=== PATIENT | female | born 1980 | race Caucasian/White ===

== ENCOUNTER 2017-04-29 15:21 | Emergency (ER) | payer MEDICAID ==
[2017-04-29] MEDS ORDERED: HYDROmorphone 1 MG/ML Syringe ONE (15:45)
--- NOTE | 2017-04-29 15:51 | EDM.PDOC ---
ED HPI GENERAL MEDICAL PROBLEM - General Chief Complaint: General Stated Complaint: STOMACH PAIN THAT STARTED LAST NIGHT Time Seen by Provider: 04/29/17 15:35 Source of Information: Reports: Patient History Limitations: Reports: No Limitations - History of Present Illness INITIAL COMMENTS - FREE TEXT/NARRATIVE: The patient presents from the [facility] in [place] with complaint of severe epigastric pain that began this morning and has increased significantly throughout the day. She has a history of cholecystectomy and hysterectomy and bilateral oophorectomy. She describes the pain what as sharp and stabbing and rates it at 8/10 and describes that at times it gets more severe and at times it dissipates. She ate toast for lunch and denies that it increased the pain. She denies nausea, vomiting, diarrhea, hematochezia, and melena. She denies fever, chills, myalgias, and arthralgias. She denies other symptoms or complaints. Upper Mid-Sternal Abdominal Pain Score (Numeric/FACES): 10 - Related Data Allergies Allergy/AdvReac Type Severity Reaction Status Date / Time No Known Allergies Allergy Verified 04/29/17 15:31 Home Meds: Home Meds ALPRAZolam [Xanax] 1 mg PO TID 04/29/17 [History] ARIPiprazole [Abilify] 15 mg PO DAILY 04/29/17 [History] Citalopram [Celexa] 30 mg PO DAILY 04/29/17 [History] Estradiol [Climara] 0.1 mg TD WEEKLY 04/29/17 [History] Omeprazole [Omeprazole] 20 mg PO DAILY 04/29/17 [History] QUEtiapine [SEROquel] 50 mg PO BEDTIME 04/29/17 [History] Past Medical History - Past Surgical History GI Surgical History: Reports: Appendectomy (About 10 years ago.), Cholecystectomy (Laparascopic 2003.) Female Surgical History: Reports: Hysterectomy (Transabdominal about 10 years ago.), Salpingo-Oophorectomy (Bilateral) Social & Family History - Tobacco Use Years of Tobacco use: 5 - Alcohol Use Days Per Week of Alcohol Use: 0 - Recreational Drug Use Recreational Drug Use: No ED ROS GENERAL - Review of Systems Review Of Systems: ROS reveals no pertinent complaints other than HPI. ED EXAM, GENERAL - Physical Exam Exam: See Below Exam Limited By: No Limitations General Appearance: Alert, WD/WN, No Apparent Distress Eye Exam: Bilateral Eye: EOMI, Normal Inspection, PERRL Ears: Normal External Exam, Normal Canal, Hearing Grossly Normal, Normal TMs Ear Exam: Bilateral Ear: Auricle Normal, Canal Normal, TM normal Nose: Normal Inspection, Normal Mucosa, No Blood Throat/Mouth: Normal Inspection, Normal Lips, Normal Teeth, Normal Gums, Normal Oropharynx, Normal Voice Head: Atraumatic, Normocephalic Neck: Normal Inspection, Supple, Non-Tender, Full Range of Motion Respiratory/Chest: No Respiratory Distress, Lungs Clear, Normal Breath Sounds, No Accessory Muscle Use, Chest Non-Tender Cardiovascular: Normal Peripheral Pulses, Regular Rate, Rhythm, No Edema, No Gallop, No Murmur, No Rub Peripheral Pulses: 2+: Radial (L), Radial (R), Dorsalis Pedis (L), Dorsalis Pedis (R) GI/Abdominal: Soft, No Distention, Guarding (Voluntary), Rigid, Rebound ( Epigastric), Tender (Severe epigastric), Abnormal Bowel Sounds (Significantly hypoactive) Back Exam: Normal Inspection, Full Range of Motion. No: CVA Tenderness (L), CVA Tenderness (R), Paraspinal Tenderness, Vertebral Tenderness Extremities: Normal Inspection, Normal Range of Motion, Non-Tender, No Pedal Edema, Normal Capillary Refill Neurological: Alert, Oriented, CN II-XII Intact, Normal Cognition, Normal Gait, Normal Reflexes, No Motor/Sensory Deficits Skin Exam: Warm, Dry, Intact, Normal Color, No Rash Course - Vital Signs Last Recorded V/S: Last Vital Signs Temp 37.2 C 04/29/17 15:25 Pulse 86 04/29/17 20:30 Resp 14 04/29/17 20:30 BP 115/89 04/29/17 20:30 Pulse Ox 96 04/29/17 19:45 - Orders/Labs/Meds Orders: Active Orders 24 hr Category Date Time Status EKG Documentation Completion [RC] ASDIRECTED Care 04/29/17 15:42 Active Abdomen Pelvis w Cont [CT] Stat Exams 04/29/17 16:18 Taken Chest 1V Frontal [CR] Stat Exams 04/29/17 15:51 Taken Sodium Chloride 0.9% [Normal Saline] 1,000 ml Med 04/29/17 16:30 Active IV ASDIRECTED Medication Orders Sodium Chloride (Normal Saline) 1,000 mls @ 100 mls/hr IV ASDIRECTED LESLIE Last Admin: 04/29/17 17:40 Dose: 100 mls/hr Labs: Laboratory Tests 04/29/17 04/29/17 04/29/17 Range/Units 14:40 15:40 15:40 WBC 12.1 H (4.0-10.2) K/uL RBC 5.14 H (3.77-5.09) M/uL Hgb 16.4 H (11.7-15.5) g/dL Hct 47.6 H (34.0-46.0) % MCV 92.6 (84.0-98.0) fL MCH 31.9 (28.2-33.3) pg MCHC 34.5 (31.7-36.0) g/dL RDW 12.5 (11.2-14.1) % Plt Count 388 H (150-350) K/uL Neut % (Auto) 57.8 (45.0-80.0) % Lymph % (Auto) 34.3 (10.0-50.0) % [place] % (Auto) 6.4 (2.0-14.0) % Eos % (Auto) 1.2 (0.0-5.0) % Baso % (Auto) 0.3 (0.0-2.0) % Neut # (Auto) 6.96 (1.40-7.00) K/uL Lymph # (Auto) 4.14 H (0.50-3.50) K/uL [place] # (Auto) 0.77 (0.00-1.00) K/uL Eos # (Auto) 0.15 (0.00-0.50) K/uL Baso # (Auto) 0.04 (0.00-0.20) K/uL PT (9.8-11.7) SEC INR Sodium 139 (136-145) mmol/L Potassium 4.0 (3.5-5.1) mmol/L Chloride 101 (98-107) mmol/L Carbon Dioxide 29.6 (21.0-32.0) mmol/L BUN 12 (7-18) mg/dL Creatinine 0.72 (0.51-1.17) mg/dL Est Cr Clr Drug Dosing 107.92 mL/min Estimated GFR (MDRD) > 60 mL/min Glucose 119 H (74-106) mg/dL Calcium 9.5 (8.5-10.1) mg/dL Total Bilirubin 0.3 (0.2-1.0) mg/dL AST 46 H (15-37) U/L ALT 74 (12-78) U/L Alkaline Phosphatase 125 H (46-116) IU/L Creatine Kinase 74 (26-308) U/L Creatine Kinase Index 1.4 (0.0-2.5) % CK-MB (CK-2) 1.00 (0.00-3.60) ng/mL Troponin I 0.000 (0.000-0.056) ng/mL C-Reactive Protein 1.3 H (<=0.9) mg/dL Total Protein 7.7 (6.4-8.2) g/dL Albumin 4.2 (3.4-5.0) g/dL Amylase 53 (25-115) U/L Lipase 97 (73-393) U/L HCG, Qual Negative (NEGATIVE) Specimen Type Urine Color Urine Appearance Urine pH (5.0-9.0) Ur Specific [place] (1.005-1.030) Urine Protein (NEGATIVE) mg/dL Urine Glucose (UA) (NEGATIVE) mg/dL Urine Ketones (NEGATIVE) mg/dL Urine Occult Blood (NEGATIVE) Urine Nitrite (NEGATIVE) Urine Bilirubin (NEGATIVE) Urine Urobilinogen (0.2-1.0) E.U./dL Ur Leukocyte Esterase (NEGATIVE) 04/29/17 04/29/17 04/29/17 Range/Units 15:40 19:45 19:45 WBC (4.0-10.2) K/uL RBC (3.77-5.09) M/uL Hgb (11.7-15.5) g/dL Hct (34.0-46.0) % MCV (84.0-98.0) fL MCH (28.2-33.3) pg MCHC (31.7-36.0) g/dL RDW (11.2-14.1) % Plt Count (150-350) K/uL Neut % (Auto) (45.0-80.0) % Lymph % (Auto) (10.0-50.0) % [place] % (Auto) (2.0-14.0) % Eos % (Auto) (0.0-5.0) % Baso % (Auto) (0.0-2.0) % Neut # (Auto) (1.40-7.00) K/uL Lymph # (Auto) (0.50-3.50) K/uL [place] # (Auto) (0.00-1.00) K/uL Eos # (Auto) (0.00-0.50) K/uL Baso # (Auto) (0.00-0.20) K/uL PT 10.0 (9.8-11.7) SEC INR 0.9 Sodium (136-145) mmol/L Potassium (3.5-5.1) mmol/L Chloride (98-107) mmol/L Carbon Dioxide (21.0-32.0) mmol/L BUN (7-18) mg/dL Creatinine (0.51-1.17) mg/dL Est Cr Clr Drug Dosing mL/min Estimated GFR (MDRD) mL/min Glucose (74-106) mg/dL Calcium (8.5-10.1) mg/dL Total Bilirubin (0.2-1.0) mg/dL AST (15-37) U/L ALT (12-78) U/L Alkaline Phosphatase (46-116) IU/L Creatine Kinase (26-308) U/L Creatine Kinase Index Not Reportable (0.0-2.5) % CK-MB (CK-2) 0.80 (0.00-3.60) ng/mL Troponin I 0.000 (0.000-0.056) ng/mL C-Reactive Protein (<=0.9) mg/dL Total Protein (6.4-8.2) g/dL Albumin (3.4-5.0) g/dL Amylase (25-115) U/L Lipase (73-393) U/L HCG, Qual (NEGATIVE) Specimen Type Urincc Urine Color Yellow Urine Appearance Cloudy Urine pH 5.5 (5.0-9.0) Ur Specific [place] 1.010 (1.005-1.030) Urine Protein Negative (NEGATIVE) mg/dL Urine Glucose (UA) Negative (NEGATIVE) mg/dL Urine Ketones Negative (NEGATIVE) mg/dL Urine Occult Blood Negative (NEGATIVE) Urine Nitrite Negative (NEGATIVE) Urine Bilirubin Negative (NEGATIVE) Urine Urobilinogen 0.2 (0.2-1.0) E.U./dL Ur Leukocyte Esterase Negative (NEGATIVE) Meds: Medications Generic Name Dose Route Start Last Admin Trade Name Frecinthya PRN Reason Stop Dose Admin Sodium Chloride 1,000 mls @ 100 mls/hr 04/29/17 16:30 04/29/17 17:40 Normal Saline IV 100 mls/hr ASDIRECTED LESLIE Administration Discontinued Medications Generic Name Dose Route Start Last Admin Trade Name Freq PRN Reason Stop Dose Admin Al Hydroxide/Mg Hydroxide 30 ml 04/29/17 18:10 04/29/17 18:14 Gi Cocktail PO 04/29/17 18:11 30 ml ONETIME ONE Administration Al Hydroxide/Mg Hydroxide Confirm 04/29/17 18:12 04/29/17 19:01 Gi Cocktail Administered 04/29/17 18:13 Not Given Dose 30 ml .ROUTE .STK-MED ONE Al Hydroxide/Mg Hydroxide 30 ml 04/29/17 19:36 04/29/17 19:39 Gi Cocktail PO 04/29/17 19:37 30 ml ONETIME ONE Administration Hydromorphone HCl Confirm 04/29/17 15:45 04/29/17 16:15 Dilaudid Administered 04/29/17 15:46 Not Given Dose 1 mg .ROUTE .STK-MED ONE Hydromorphone HCl 1 mg 04/29/17 15:53 04/29/17 15:47 Dilaudid IVPUSH 04/29/17 15:54 1 mg ONETIME ONE Administration Hydromorphone HCl 1 mg 04/29/17 16:34 04/29/17 16:38 Dilaudid IVPUSH 04/29/17 16:35 1 mg ONETIME ONE Administration Hydromorphone HCl 1 mg 04/29/17 17:28 04/29/17 17:32 Dilaudid IVPUSH 04/29/17 17:29 1 mg ONETIME ONE Administration Sodium Chloride 1,000 mls @ 1,000 mls/hr 04/29/17 16:20 04/29/17 16:26 Normal Saline IV 04/29/17 17:19 1,000 mls/hr .BOLUS ONE Administration Iopamidol 100 ml 04/29/17 16:29 04/29/17 16:48 Isovue-300 (61%) IVPUSH 04/29/17 16:30 100 ml ONETIME ONE Administration - Radiology Interpretation Free Text/Narrative:: Chest xray normal. CT of the abdomen and pelvis shows no acute abnormalities. - Re-Assessments/Exams Free Text/Narrative Re-Assessment/Exam: 04/29/17 15:56 Pain significantly improved after 1 mg of Dilaudid, patient rates at 5/10 currently. 04/29/17 18:45 Pain improved but still present after GI cocktail. Will continue to monitor and treat appropriately and check serial cardiac enzymes in 4 hours to rule out NC. 04/29/17 20:30 Patient reports resolution of pain following second GI cocktail. 04/29/17 21:00 Pain still at 0/10. Departure - Departure Time of Disposition: 21:00 Disposition: Home, Self-Care 01 Clinical Impression: Epigastric abdominal pain - Discharge Information Referrals: Tamara Ray PA-C [Primary Care Provider] - Forms: ED Department Discharge - My Orders Last 24 Hours: My Active Orders 04/29/17 15:42 EKG Documentation Completion [RC] ASDIRECTED 04/29/17 15:51 Chest 1V Frontal [CR] Stat 04/29/17 16:18 Abdomen Pelvis w Cont [CT] Stat 04/29/17 16:30 Sodium Chloride 0.9% [Normal Saline] 1,000 ml IV ASDIRECTED - Assessment/Plan Last 24 Hours: My Active Orders 04/29/17 15:42 EKG Documentation Completion [RC] ASDIRECTED 04/29/17 15:51 Chest 1V Frontal [CR] Stat 04/29/17 16:18 Abdomen Pelvis w Cont [CT] Stat 04/29/17 16:30 Sodium Chloride 0.9% [Normal Saline] 1,000 ml IV ASDIRECTED Assessment:: Epigastric abdominal pain improved following first dose of GI cocktail and resolved after second dose of GI cocktail. Differential includes most likely Gastric Ulcer or Gastritis, and less likely Indigestion. Plan: 1. Given Dilaudid 1 mg IV x 3 with some improvement in pain. 2. NS bolus of 1 liter and then 100 mL/hour during ER stay. 3. Ruled out acute NC and normal chest xray and CT of the abdomen and pelvis. 4. GI cocktail x 2 in ER with improvement of pain following first dose and resolution of pain following the second dose. 5. Explained to patient most likely differential includes Gastric Ulcer or Gastritis and less likely Indigestion. 6. Instructed to increase dose of Prilosec from 20 mg PO QHS to 20 mg PO in AM and 20 mg PO QHS. 7. Prescription for Carafate 1 gram PO QID, take 1 hour before meals, 10 day supply, 0 refills. 8. Follow up with PCP in 5-7 days or sooner if symptoms worsen. Recommend referral for Upper GI Endoscopy if symptoms persist. 9. Return to ER with increased/refractory/severe pain, refractory vomiting, blood in vomit or coffee ground material in vomit, blood in stool, black stool, or other emergent concerns.
[2017-04-29] MEDS ORDERED: HYDROmorphone 1 MG/ML Syringe IVPUSH ONE ×3 (15:53→17:28)
[2017-04-29 16:17] LABS: CHLORIDE,CL 101 mmol/L (98-107); SODIUM,NA 139 mmol/L (136-145)
[2017-04-29] MEDS ORDERED: Sodium Chloride 0.9% 1,000 ML IV ONE (16:20)
[2017-04-29] MEDS ORDERED: Iopamidol 612 MG/ML 100 ML Bottle IVPUSH ONE (16:29)
[2017-04-29] MEDS ORDERED: Sodium Chloride 0.9% 1,000 ML IV SCH (16:30)
[2017-04-29] MEDS ORDERED: GI Cocktail Oral Solution 30 ML PO ONE ×2 (18:10→19:36)
[2017-04-29] MEDS: GI Cocktail Oral Solution 30 ML ONE ×2 (19:01)
[2017-04-29 22:04] VITALS: BP 99/80
== END 2017-04-29 21:35 | disposition home or self-care (01) ==
LOC: LL.ED 15:21
DX: R10.13 Epigastric pain (principal); Z90.49 Acquired absence of other specified parts of digestive tract; Z90.710 Acquired absence of both cervix and uterus; Z79.899 Other long term (current) drug therapy
CPT/HCPCS: 36415; 71010; 74177; 80053; 81003; 82150; 82550; 82553; 83690; 84484; 84703; 85025; 85610; 86140; 93005; 96361; 96374; 96376; 99285; A9270; J1170; J7030; Q9967

== ENCOUNTER 2017-12-26 00:39 | Observation (INO) | payer MEDICAID ==
[2017-12-26] MEDS ORDERED: HYDROmorphone 1 MG/ML Syringe IVPUSH PRN (01:12)
--- NOTE | 2017-12-26 01:24 | EDM.PDOC ---
ED HPI GENERAL MEDICAL PROBLEM - General Chief Complaint: General Stated Complaint: Abdominal pain Time Seen by Provider: 12/26/17 00:50 Source of Information: Reports: Patient History Limitations: Reports: No Limitations - History of Present Illness INITIAL COMMENTS - FREE TEXT/NARRATIVE: Patient is a 37-year-old female who was brought in by the [employer] ambulance from work with severe abdominal pain more in the hypogastric area and multiple syncopal episodes while in the ER she had a syncopal episode that was witnessed by the nurses easily arousable vitals stable Onset: Gradual Duration: Minutes:, Intermittent Location: Reports: Abdomen Quality: Reports: Ache, Dull, Stabbing (Abdominal pain) Severity: Moderate Improves with: Reports: None Worsens with: Reports: None, Movement Context: Reports: Activity (Working) Associated Symptoms: Reports: Diaphoresis, Fever/Chills, Weakness. Denies: Cough, cough w sputum, Nausea/Vomiting Abdomen Pain Score (Numeric/FACES): 7 - Related Data Allergies Allergy/AdvReac Type Severity Reaction Status Date / Time No Known Allergies Allergy Verified 12/26/17 00:54 Home Meds: Home Meds ALPRAZolam [Xanax] 1 mg PO TID 04/29/17 [History] ARIPiprazole [Abilify] 15 mg PO DAILY 04/29/17 [History] Citalopram [Celexa] 30 mg PO DAILY 04/29/17 [History] Estradiol [Climara] 0.1 mg TD WEEKLY 04/29/17 [History] Omeprazole [Omeprazole] 20 mg PO DAILY 04/29/17 [History] QUEtiapine [SEROquel] 50 mg PO BEDTIME 04/29/17 [History] Sucralfate [Carafate] 1 gm PO QID #40 tablet 04/29/17 [Rx] Past Medical History HEENT History: Reports: Impaired Vision, Other (See Below) Other HEENT History: wears glasses Neurological History: Reports: Migraines, Seizure, Other (See Below) Other Neuro History: seizure after starting tramadol Psychiatric History: Reports: Anxiety, Depression, Panic Attack - Past Surgical History GI Surgical History: Reports: Appendectomy (About 10 years ago.), Cholecystectomy (Laparascopic 2004.) Female Surgical History: Reports: Hysterectomy (Transabdominal about 10 years ago.), Salpingo-Oophorectomy (Bilateral) Social & Family History - Tobacco Use Smoking Status *Q: Current Every Day Smoker Years of Tobacco use: 5 Packs/Tins Daily: 0.5 Used Tobacco, but Quit: No Second Hand Smoke Exposure: No - Caffeine Use Caffeine Use: Reports: None - Alcohol Use Days Per Week of Alcohol Use: 0 - Recreational Drug Use Recreational Drug Use: No Drug Use in Last 12 Months: No Recreational Drug Type: Reports: Other (see below) Other Recreational Drug Type: state for one year did every type of drug but has since quit ED ROS GENERAL - Review of Systems Review Of Systems: See Below Constitutional: Reports: Fever, Chills, Diaphoresis HEENT: Reports: No Symptoms, Rhinitis Respiratory: Reports: No Symptoms Cardiovascular: Reports: No Symptoms Endocrine: Reports: No Symptoms GI/Abdominal: Reports: Abdominal Pain : Reports: No Symptoms Musculoskeletal: Reports: Neck Pain, Shoulder Pain, Arm Pain, Back Pain, Hand Pain, Leg Pain, Foot Pain, Joint Pain, Joint Swelling, Muscle Pain, Muscle Stiffness, Other (Secondary to job) Skin: Reports: No Symptoms Neurological: Reports: No Symptoms Psychiatric: Reports: Anxiety Hematologic/Lymphatic: Reports: No Symptoms Immunologic: Reports: No Symptoms ED EXAM, GENERAL - Physical Exam Exam: See Below Exam Limited By: No Limitations General Appearance: Alert, WD/WN, Anxious, Moderate Distress Ears: Normal External Exam, Normal Canal, Hearing Grossly Normal, Normal TMs Ear Exam: Bilateral Ear: Auricle Normal, Canal Normal, TM normal Nose: Normal Inspection, Normal Mucosa, No Blood Throat/Mouth: Normal Inspection, Normal Lips, Normal Teeth, Normal Gums, Normal Oropharynx, Normal Voice, No Airway Compromise Head: Atraumatic, Normocephalic Neck: Normal Inspection, Supple, Non-Tender, Full Range of Motion Respiratory/Chest: No Respiratory Distress, Lungs Clear, Normal Breath Sounds, No Accessory Muscle Use, Chest Non-Tender Cardiovascular: Normal Peripheral Pulses, Regular Rate, Rhythm, No Edema, No Gallop, No JVD, No Murmur, No Rub GI/Abdominal: Normal Bowel Sounds, Soft, No Organomegaly, No Distention, No Abnormal Bruit, No Mass, Tender (Tender to palpation) (Female) Exam: Deferred Rectal (Female) Exam: Deferred Back Exam: Normal Inspection, Full Range of Motion, NT Extremities: Normal Inspection, Normal Range of Motion, Non-Tender, Normal Capillary Refill, No Pedal Edema Neurological: Alert, Oriented, CN II-XII Intact, Normal Cognition, Normal Gait, Normal Reflexes, No Motor/Sensory Deficits Psychiatric: Normal Affect, Normal Mood, Anxious, Tearful (Secondary to pain) Skin Exam: Warm, Dry, Intact, Normal Color, No Rash Lymphatic: No Adenopathy Course - Vital Signs Last Recorded V/S: Last Vital Signs Temp 97.9 F 12/26/17 00:40 Pulse 94 12/26/17 00:40 Resp 20 12/26/17 00:40 BP 130/99 H 12/26/17 00:40 Pulse Ox 98 12/26/17 00:40 - Orders/Labs/Meds Orders: Active Orders 24 hr Category Date Time Status EKG Documentation Completion [RC] ASDIRECTED Care 12/26/17 01:02 Active AMYLASE [CHEM] Stat Lab 12/26/17 01:02 Ordered CBC WITH AUTO DIFF [HEME] Stat Lab 12/26/17 01:02 Ordered COMPREHENSIVE METABOLIC PN,CMP [CHEM] Stat Lab 12/26/17 01:02 Ordered INFLUENZA A+B AG SCREEN [RM] Stat Lab 12/26/17 01:06 Uncollected LIPASE [CHEM] Stat Lab 12/26/17 01:02 Ordered EKG 12 Lead [EK] Routine Ther 12/26/17 01:01 Ordered Departure - Departure Time of Disposition: 02:00 Disposition: Refer to Observation Condition: Undetermined Clinical Impression: Abdominal pain, Viral gastroenteritis - Discharge Information Referrals: Tamara Ray PA-C [Primary Care Provider] - - Problem List & Annotations (1) Abdominal pain SNOMED Code(s): 96157257 Code(s): R10.9 - UNSPECIFIED ABDOMINAL PAIN Status: Acute (2) Viral gastroenteritis SNOMED Code(s): 996731060 Code(s): A08.4 - VIRAL INTESTINAL INFECTION, UNSPECIFIED Status: Acute Annotation/Comment:: Patient will be hydrated pain will be controlled with Dilaudid IV Zofran will be given IV patient will be admitted for observation - Problem List Review Problem List Initiated/Reviewed/Updated: Yes - My Orders Last 24 Hours: My Active Orders 12/26/17 01:01 EKG 12 Lead [EK] Routine 12/26/17 01:02 EKG Documentation Completion [RC] ASDIRECTED AMYLASE [CHEM] Stat CBC WITH AUTO DIFF [HEME] Stat COMPREHENSIVE METABOLIC PN,CMP [CHEM] Stat LIPASE [CHEM] Stat 12/26/17 01:06 INFLUENZA A+B AG SCREEN [RM] Stat - Assessment/Plan Admission H&P: Please use this note as an admission H&P Last 24 Hours: My Active Orders 12/26/17 01:01 EKG 12 Lead [EK] Routine 12/26/17 01:02 EKG Documentation Completion [RC] ASDIRECTED AMYLASE [CHEM] Stat CBC WITH AUTO DIFF [HEME] Stat COMPREHENSIVE METABOLIC PN,CMP [CHEM] Stat LIPASE [CHEM] Stat 12/26/17 01:06 INFLUENZA A+B AG SCREEN [RM] Stat Plan: Patient will be admitted for observation overnight
[2017-12-26] MEDS ORDERED: Ondansetron 4 MG/2 ML SDV IVPUSH ONE (01:32)
[2017-12-26] MEDS: Sodium Chloride 0.9% 10 ML Syringe FLUSH PRN ×3 (01:49→19:17)
[2017-12-26] MEDS ORDERED: ESTRADIOL 0.1 MG TD SCH (02:15)
[2017-12-26] MEDS ORDERED: FLU Vacc QS 2017-18 (36mos UP)/PF 60 MCG/0.5 ML Syringe IM ONE (02:15)
[2017-12-26] MEDS: ALPRAZolam 1 MG Tab PO SCH ×4 (03:14→19:18)
[2017-12-26] MEDS: Sodium Chloride 0.9% 1,000 ML IV SCH ×3 (03:14→17:08)
[2017-12-26] MEDS: QUEtiapine 25 MG Tab PO SCH ×2 (03:14→19:38)
[2017-12-26] MEDS: Acetaminophen 325 MG Tab PO PRN ×2 (03:14→13:27)
[2017-12-26 07:41] LABS: CHLORIDE,CL 106 mmol/L (98-107); SODIUM,NA 139 mmol/L (136-145)
[2017-12-26] MEDS ORDERED: ALPRAZolam 1 MG Tab PO SCH (08:00)
[2017-12-26] MEDS: Nicotine 21 MG/24 Hr Patch TRDERM SCH (08:12)
[2017-12-26] MEDS: ARIPiprazole 10 MG Tab PO SCH (08:14)
[2017-12-26] MEDS: Citalopram 20 MG Tab PO SCH (08:15)
[2017-12-26] MEDS: Enoxaparin 40 MG/0.4 ML Syringe SUBCUT SCH (08:16)
[2017-12-26] MEDS: Omeprazole 20 MG Cap.CR PO SCH (08:25)
[2017-12-26] MEDS ORDERED: Ketorolac 30 MG/ML SDV IVPUSH ONE (13:59)
[2017-12-26] MEDS ORDERED: HYDROmorphone 1 MG/ML Syringe IVPUSH ONE (14:02)
[2017-12-26] MEDS ORDERED: Morphine 4 MG/ML Syringe IVPUSH ONE (14:15)
[2017-12-26] MEDS ORDERED: Iopamidol 612 MG/ML 100 ML Bottle IVPUSH ONE ×2 (17:00→17:01)
[2017-12-26] MEDS ORDERED: Ondansetron 4 MG/2 ML SDV IVPUSH PRN (18:37)
--- NOTE | 2017-12-26 19:02 | PCM.SN ---
- Free Text/Narrative Note: Patient observed to be very sleepy throughout most of the day. No observed episodes of passing out/acting faint. Patient reports that she fainted/passed out approximately a half dozen times last evening while working at [employer]. Continued to complain of generalized abdominal pain, sometimes radiating to back. UA obtained and unremarkable. Plain xray of abdomen obtained and no air/ fluid levels noted. Stool noted throughout, but patient did not complain of feeling constipated. Pain did worsen a bit after she ate toast. She also complained of a migraine at that time and asked for medication. Ultimately she received Toradol and continued to be very tearful, and this was followed by single dose of small amount of MS (4mg). Patient observed. She became more tired again and did not want to go to get her abdominal films performed, continuing to tell the cable television line technician to "come back in 20 minutes". This went on for some time. She continues to have decreased bowel sounds, and has tenderness more pronounced in left abdomen and supriya-umbilically. No guarding or rebound. No CVA pain. Lungs clear. Heart RRR. Vital signs stable with no elevation in BP observed, even when patient complaining of pain. Suspect behavioral component to clinical picture. CT of abdomen and pelvis has been ordered to rule out other potential causes of persistent complaint of abdominal pain. She has not otherwise exhibited usual set of symptoms consistent with viral gastroenteritis, such as loose stools or fever. Patient did have one episode of emesis while drinking contrast. Is now requesting her Xanax. Continuing to monitor for changes.
[2017-12-26] MEDS ORDERED: ALPRAZolam 0.25 MG Tab PO PRN (19:10)
[2017-12-26] MEDS ORDERED: QUEtiapine 25 MG Tab PO SCH (20:00)
--- NOTE | 2017-12-26 20:29 | PCM.SN ---
- Free Text/Narrative Note: Questionable area of small bowel RLQ on scan that may appear consistent with intussusception per Radiology. However no surrounding inflammation/dilated loops /fluid noted. Call placed to [place] [facility]. Spoke to . He felt that this could be artifact due to speed of CT catching peristalsis. Patient continues to be afebrile and has no white count. Soft abdomen. He recommended continued observation and felt that this could still be due to gastroenteritis. They will be happy to see patient however if needed if symptoms do not improve. Patient did have some food at dinner tonight. Currently feels that abdominal discomfort has improved overall.
[2017-12-27] MEDS: Sodium Chloride 0.9% 1,000 ML IV SCH (00:37)
[2017-12-27] MEDS: ARIPiprazole 10 MG Tab PO SCH (08:18)
[2017-12-27] MEDS: Citalopram 20 MG Tab PO SCH (08:20)
[2017-12-27] MEDS: Nicotine 21 MG/24 Hr Patch TRDERM SCH (08:21)
[2017-12-27] MEDS: Omeprazole 20 MG Cap.CR PO SCH (08:22)
[2017-12-27] MEDS: Enoxaparin 40 MG/0.4 ML Syringe SUBCUT SCH (08:22)
[2017-12-27] MEDS: Acetaminophen 325 MG Tab PO PRN (08:23)
[2017-12-27 08:48] LABS: CHLORIDE,CL 107 mmol/L (98-107); SODIUM,NA 140 mmol/L (136-145)
--- NOTE | 2017-12-27 11:13 | PCM.DCSUM1 ---
Discharge Summary - Hospital Course Free Text/Narrative:: Patient is a 37-year-old who was brought in from [facility] secondary to severe abdominal pain she was evaluated and admitted now doing better no pain some diarrhea patient will be discharged home at this time - Discharge Data Discharge Date: 12/27/17 Discharge Disposition: Home, Self-Care 01 Condition: Good - Discharge Diagnosis/Problem(s) (1) Abdominal pain SNOMED Code(s): 26877722 ICD Code: R10.9 - UNSPECIFIED ABDOMINAL PAIN Status: Acute Current Visit : Yes (2) Viral gastroenteritis SNOMED Code(s): 841325687 ICD Code: A08.4 - VIRAL INTESTINAL INFECTION, UNSPECIFIED Status: Acute Current Visit: Yes Problem Details: Patient doing better abdominal pain control well-hydrated will discharge home - Patient Instructions Diet: Heart Healthy Diet Activity: As Tolerated Driving: May Drive Today Showering/Bathing: May Shower - Discharge Plan Home Medications: Home Meds ALPRAZolam [Xanax] 1 mg PO TID 04/29/17 [History] ARIPiprazole [Abilify] 15 mg PO DAILY 04/29/17 [History] Citalopram [Celexa] 30 mg PO DAILY 04/29/17 [History] Estradiol [Climara] 0.1 mg TD WEEKLY 04/29/17 [History] Omeprazole [Omeprazole] 20 mg PO DAILY 04/29/17 [History] QUEtiapine [SEROquel] 50 mg PO BEDTIME 04/29/17 [History] Forms: ED Department Discharge Referrals: Tamara Ray PA-C [Primary Care Provider] - - Discharge Summary/Plan Comment DC Time >30 min.: No - Patient Data Vitals - Most Recent: Last Vital Signs Temp 98.4 F 12/27/17 08:00 Pulse 89 12/27/17 08:00 Resp 12 12/27/17 08:00 BP 155/98 H 12/27/17 08:00 Pulse Ox 99 12/27/17 08:00 Weight - Most Recent: 199 lb 15.983 oz I&O - Last 24 hours: Intake & Output 12/26/17 12/27/17 12/27/17 22:59 06:59 14:59 Intake Total 2691 903 200 Output Total 300 700 800 Balance 2391 203 -600 Lab Results - Last 24 hrs: Laboratory Results - last 24 hr 12/26/17 12/26/17 12/26/17 Range/Units 07:05 13:59 16:36 WBC (4.0-10.2) K/uL RBC (3.77-5.09) M/uL Hgb (11.7-15.5) g/dL Hct (34.0-46.0) % MCV (84.0-98.0) fL MCH (28.2-33.3) pg MCHC (31.7-36.0) g/dL RDW (11.2-14.1) % Plt Count (150-350) K/uL Neut % (Auto) (45.0-80.0) % Lymph % (Auto) (10.0-50.0) % [place] % (Auto) (2.0-14.0) % Eos % (Auto) (0.0-5.0) % Baso % (Auto) (0.0-2.0) % Neut # (Auto) (1.40-7.00) K/uL Lymph # (Auto) (0.50-3.50) K/uL [place] # (Auto) (0.00-1.00) K/uL Eos # (Auto) (0.00-0.50) K/uL Baso # (Auto) (0.00-0.20) K/uL Sodium (136-145) mmol/L Potassium (3.5-5.1) mmol/L Chloride (98-107) mmol/L Carbon Dioxide (21.0-32.0) mmol/L BUN (7-18) mg/dL Creatinine (0.51-1.17) mg/dL Est Cr Clr Drug Dosing mL/min Estimated GFR (MDRD) mL/min Glucose (74-106) mg/dL Calcium (8.5-10.1) mg/dL Specimen Type Urinblad Urine Color Yellow Urine Appearance Clear Urine pH 6.5 (5.0-9.0) Ur Specific [place] 1.020 (1.005-1.030) Urine Protein Negative (NEGATIVE) mg/dL Urine Glucose (UA) Negative (NEGATIVE) mg/dL Urine Ketones Negative (NEGATIVE) mg/dL Urine Occult Blood Negative (NEGATIVE) Urine Nitrite Negative (NEGATIVE) Urine Bilirubin Negative (NEGATIVE) Urine Urobilinogen 0.2 (0.2-1.0) E.U./dL Ur Leukocyte Esterase Negative (NEGATIVE) Urine RBC 0-5 /HPF Urine WBC 0-5 /HPF Ur Epithelial Cells Moderate H /LPF Urine Bacteria Few (NONE TO FEW) /HPF Urine Opiates Screen Positive H (NEGATIVE) Urine Methadone Screen Negative (NEGATIVE) U Acetaminophen Screen TNP Ur Barbiturates Screen Negative (NEGATIVE) Ur Tricyclics Screen Negative (NEGATIVE) Ur Phencyclidine Scrn TNP Ur Amphetamine Screen Negative (NEGATIVE) U Methamphetamines Scrn Negative (NEGATIVE) U Benzodiazepines Scrn Positive H (NEGATIVE) U Cocaine Metab Screen Negative (NEGATIVE) U Marijuana (THC) Screen Negative (NEGATIVE) Monoscreen Negative (NEGATIVE) 12/27/17 12/27/17 Range/Units 08:20 08:30 WBC 6.1 (4.0-10.2) K/uL RBC 4.27 (3.77-5.09) M/uL Hgb 13.6 (11.7-15.5) g/dL Hct 40.2 (34.0-46.0) % MCV 94.1 (84.0-98.0) fL MCH 31.9 (28.2-33.3) pg MCHC 33.8 (31.7-36.0) g/dL RDW 12.7 (11.2-14.1) % Plt Count 239 (150-350) K/uL Neut % (Auto) 67.6 (45.0-80.0) % Lymph % (Auto) 27.0 (10.0-50.0) % [place] % (Auto) 4.3 (2.0-14.0) % Eos % (Auto) 0.8 (0.0-5.0) % Baso % (Auto) 0.3 (0.0-2.0) % Neut # (Auto) 4.12 (1.40-7.00) K/uL Lymph # (Auto) 1.65 (0.50-3.50) K/uL [place] # (Auto) 0.26 (0.00-1.00) K/uL Eos # (Auto) 0.05 (0.00-0.50) K/uL Baso # (Auto) 0.02 (0.00-0.20) K/uL Sodium 140 (136-145) mmol/L Potassium 4.1 (3.5-5.1) mmol/L Chloride 107 (98-107) mmol/L Carbon Dioxide 24.8 (21.0-32.0) mmol/L BUN 10 (7-18) mg/dL Creatinine 0.57 (0.51-1.17) mg/dL Est Cr Clr Drug Dosing 135.53 mL/min Estimated GFR (MDRD) > 60 mL/min Glucose 103 (74-106) mg/dL Calcium 8.7 (8.5-10.1) mg/dL Specimen Type Urine Color Urine Appearance Urine pH (5.0-9.0) Ur Specific [place] (1.005-1.030) Urine Protein (NEGATIVE) mg/dL Urine Glucose (UA) (NEGATIVE) mg/dL Urine Ketones (NEGATIVE) mg/dL Urine Occult Blood (NEGATIVE) Urine Nitrite (NEGATIVE) Urine Bilirubin (NEGATIVE) Urine Urobilinogen (0.2-1.0) E.U./dL Ur Leukocyte Esterase (NEGATIVE) Urine RBC /HPF Urine WBC /HPF Ur Epithelial Cells /LPF Urine Bacteria (NONE TO FEW) /HPF Urine Opiates Screen (NEGATIVE) Urine Methadone Screen (NEGATIVE) U Acetaminophen Screen Ur Barbiturates Screen (NEGATIVE) Ur Tricyclics Screen (NEGATIVE) Ur Phencyclidine Scrn Ur Amphetamine Screen (NEGATIVE) U Methamphetamines Scrn (NEGATIVE) U Benzodiazepines Scrn (NEGATIVE) U Cocaine Metab Screen (NEGATIVE) U Marijuana (THC) Screen (NEGATIVE) Monoscreen (NEGATIVE) Med Orders - Current: Current Medications Acetaminophen (Tylenol) 650 mg PO Q4H PRN PRN Reason: analgesia/fever Last Admin: 12/27/17 08:23 Dose: 650 mg Alprazolam (Xanax) 1 mg PO TID [facility] Last Admin: 12/26/17 19:18 Dose: Not Given Aripiprazole (Abilify) 15 mg PO DAILY [facility] Last Admin: 12/27/17 08:18 Dose: 15 mg Citalopram Hydrobromide (Celexa) 30 mg PO DAILY [facility] Last Admin: 12/27/17 08:20 Dose: 30 mg Enoxaparin Sodium (Lovenox) 40 mg SUBCUT DAILY [facility] Last Admin: 12/27/17 08:22 Dose: 40 mg Nicotine (Habitrol) 21 mg TRDERM DAILY [facility] Last Admin: 12/27/17 08:21 Dose: 21 mg Non-Formulary Medication (Estradiol) 0.1 mg TD WEEKLY [facility] Omeprazole (Omeprazole) 20 mg PO DAILY [facility] Last Admin: 12/27/17 08:22 Dose: 20 mg Ondansetron HCl (Zofran) 4 mg IVPUSH Q6H PRN PRN Reason: Nausea Last Admin: 12/26/17 19:12 Dose: 4 mg Quetiapine Fumarate (Seroquel) 50 mg PO BEDTIME [facility] Last Admin: 12/26/17 19:38 Dose: 50 mg Sodium Chloride (Saline Flush) 10 ml FLUSH ASDIRECTED PRN PRN Reason: Keep Vein Open Last Admin: 12/26/17 19:17 Dose: 10 ml Discontinued Medications Alprazolam (Xanax) 1 mg PO TID [facility] Alprazolam (Xanax) 0.25 mg PO Q6H PRN PRN Reason: Anxiety Stop: 12/27/17 10:00 Hydromorphone HCl (Dilaudid) 1 mg IVPUSH Q1H PRN PRN Reason: Abdominal Pain Last Admin: 12/26/17 01:35 Dose: 1 mg Sodium Chloride (Normal Saline) 1,000 mls @ 150 mls/hr IV ASDIRECTED [facility] Last Admin: 12/27/17 00:37 Dose: 150 mls/hr Influenza Virus Vaccine (Pharmacy To Dose - Influenza Vaccine) 1 each IM ONETIME ONE Stop: 12/26/17 02:01 Influenza Virus Vaccine (Fluzone Quad [id number]) 60 mcg IM .ONCE ONE Stop: 12/26/17 02:16 Last Admin: 12/26/17 10:13 Dose: Not Given Iopamidol (Isovue-300 (61%)) 100 ml IVPUSH ONETIME ONE Stop: 12/26/17 17:01 Last Admin: 12/26/17 18:59 Dose: 100 ml Iopamidol (Isovue-300 (61%)) 100 ml IVPUSH ONETIME ONE Stop: 12/26/17 17:02 Last Admin: 12/27/17 06:10 Dose: Not Given Ketorolac Tromethamine (Toradol) 30 mg IVPUSH ONETIME ONE Stop: 12/26/17 14:00 Last Admin: 12/26/17 14:23 Dose: 30 mg Morphine Sulfate (Morphine) 4 mg IVPUSH ONETIME ONE Stop: 12/26/17 14:16 Last Admin: 12/26/17 14:24 Dose: 4 mg Ondansetron HCl (Zofran) 4 mg IVPUSH ONETIME ONE Stop: 12/26/17 01:33 Last Admin: 12/26/17 01:35 Dose: 4 mg Quetiapine Fumarate (Seroquel) 50 mg PO BEDTIME [facility] - Exam General: Reports: Alert, Oriented HEENT: Reports: Pupils Equal, Pupils Reactive, EOMI, Mucous Membr. Moist/[place] Neck: Reports: Supple Lungs: Reports: Clear to Auscultation, Normal Respiratory Effort Cardiovascular: Reports: Regular Rate, Regular Rhythm GI/Abdominal Exam: Normal Bowel Sounds, Non-Tender, No Organomegaly, No Distention, No Abnormal Bruit, No Mass, Pelvis Stable (Female) Exam: Deferred Rectal (Female) Exam: Deferred Back Exam: Reports: Normal Inspection, Full Range of Motion Extremities: Normal Inspection, Normal Range of Motion, Non-Tender, No Pedal Edema, Normal Capillary Refill Skin: Reports: Warm, Dry, Intact Wound/Incisions: Reports: Healing Well Neurological: Reports: No New Focal Deficit, Normal Gait, Normal Speech, Normal Tone, Strength Equal Bilateral Psy/Mental Status: Reports: Alert, Normal Affect, Normal Mood *Q Meaningful Use (DIS) - VTE *Q VTE Criteria *Q: - Stroke *Q Stroke Criteria *Q: - AMI *Q AMI Criteria *Q:
[2017-12-27 12:11] VITALS: BP 147/101
== END 2017-12-27 12:52 | disposition home or self-care (01) ==
LOC: LL.ED 00:39 → LL.MS 01:56
PROVIDERS: ADMIT Family Medicine; ATTEND Family Medicine
DX: A08.4 Viral intestinal infection, unspecified (principal); Z79.899 Other long term (current) drug therapy; F41.9 Anxiety disorder, unspecified; F32.9 Major depressive disorder, single episode, unspecified; Z90.49 Acquired absence of other specified parts of digestive tract; Z90.710 Acquired absence of both cervix and uterus; F17.210 Nicotine dependence, cigarettes, uncomplicated
CPT/HCPCS: 36415; 71046; 74019; 74177; 80048; 80053; 80305; 81001; 82150; 83690; 85025; 86308; 87804; 93005; 96374; 96375; 99285; A9270; J1170; J1650; J1885; J2270; J2405; J7030; J7050; Q9967; 96361; 96372; 96376; G0378

== ENCOUNTER 2018-08-04 14:37 | Emergency (ER) | payer MEDICAID ==
[2018-08-04] MEDS ORDERED: Sodium Chloride 0.9% 10 ML Syringe FLUSH PRN (15:31)
[2018-08-04] MEDS ORDERED: Sodium Chloride 0.9% 1,000 ML IV ONE (15:34)
[2018-08-04] MEDS ORDERED: Ondansetron 4 MG/2 ML SDV IVPUSH ONE (15:34)
[2018-08-04] MEDS ORDERED: Ketorolac 30 MG/ML SDV IVPUSH ONE (15:34)
[2018-08-04] MEDS ORDERED: Diazepam 5 MG Tab PO ONE (15:35)
[2018-08-04] MEDS ORDERED: GI Cocktail Oral Solution 30 ML PO ONE (15:35)
[2018-08-04 16:13] LABS: CHLORIDE,CL 101 mmol/L (98-107); SODIUM,NA 137 mmol/L (136-145)
[2018-08-04] MEDS ORDERED: Iopamidol 612 MG/ML 100 ML Bottle IVPUSH ONE (16:27)
[2018-08-04] MEDS ORDERED: fentaNYL 100 MCG/2 ML SDV IVPUSH ONE ×2 (16:36→17:33)
--- NOTE | 2018-08-04 17:47 | EDM.PDOC ---
ED HPI GENERAL MEDICAL PROBLEM - General Chief Complaint: General Stated Complaint: ABDOMINAL PAIN Time Seen by Provider: 08/04/18 15:03 Source of Information: Reports: Patient History Limitations: Reports: No Limitations - History of Present Illness INITIAL COMMENTS - FREE TEXT/NARRATIVE: Patient comes to ER complaining of abdominal pain that has been present since Tuesday, 5 days ago. She reports multiple episodes of vomiting on the first day. This resolved by Tuesday and has not returned. No reported bowel changes. No blood in emesis nor in stools. She denies dysuria or other urinary changes. Has history of multiple abdominal surgeries, including appendectomy, cholecystectomy, hysterectomy, and bowel adhesion removal. Last surgery was over a decade ago. 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 (see below) Other Treatments SHELLFISH SHUCKER: 2 hydrocodone tabs at 1400 today Abdominal Pain Score (Numeric/FACES): 8 - Related Data Allergies Allergy/AdvReac Type Severity Reaction Status Date / Time methylprednisolone Allergy Hallucinati Verified 08/04/18 15:06 ons Home Meds: Home Meds ALPRAZolam [Xanax] 1 mg PO TID 04/29/17 [History] ARIPiprazole [Abilify] 15 mg PO DAILY 04/29/17 [History] Estradiol [Climara] 0.1 mg TD WEEKLY 04/29/17 [History] Omeprazole 20 mg PO DAILY 04/29/17 [History] Acetaminophen [Tylenol] 650 mg PO Q4H PRN tablet 12/27/17 [Rx] Carisoprodol [Soma] 350 mg PO BID PRN 08/04/18 [History] Citalopram Hydrobromide [Celexa] 40 mg PO BEDTIME 08/04/18 [History] Gabapentin [Neurontin] 300 mg PO TID 08/04/18 [History] Hydrocodone/Acetaminophen [Hydrocodon-Acetaminophen 5-325] 1 - 2 each PO Q6HR PRN 08/04/18 [History] QUEtiapine Fumarate [Seroquel] 200 mg PO BEDTIME 08/04/18 [History] Sucralfate [Carafate] 1 gm PO QID 08/04/18 [History] Past Medical History HEENT History: Reports: Impaired Vision, Other (See Below) Other HEENT History: wears glasses Gastrointestinal History: Reports: GERD Neurological History: Reports: Migraines, Seizure, Other (See Below) Other Neuro History: seizure after starting tramadol Psychiatric History: Reports: Anxiety, Depression, Panic Attack Endocrine/Metabolic History: Reports: Obesity/BMI 30+ Immunologic History: Reports: None Oncologic (Cancer) History: Reports: None - Infectious Disease History Infectious Disease History: Reports: Chicken Pox - Past Surgical History GI Surgical History: Reports: Appendectomy, Cholecystectomy Female Surgical History: Reports: Hysterectomy, Salpingo-Oophorectomy Social & Family History - Family History Family Medical History: Noncontributory - Tobacco Use Smoking Status *Q: Current Every Day Smoker Years of Tobacco use: 22 Packs/Tins Daily: 1 - Caffeine Use Caffeine Use: Reports: None Caffeine Use Comment: Patient states she rarely uses caffeine - Recreational Drug Use Recreational Drug Use: No ED ROS GENERAL - Review of Systems Review Of Systems: See Below Constitutional: Reports: Malaise. Denies: Fever, Chills, Weakness, Night Sweats , Diaphoresis, Decreased Appetite, Weight Loss, Weight Gain HEENT: Reports: No Symptoms Respiratory: Reports: No Symptoms. Denies: Shortness of Breath, Pleuritic Chest Pain, Cough Cardiovascular: Reports: No Symptoms. Denies: Chest Pain, Dyspnea on Exertion, Lightheadedness, Palpitations, Syncope GI/Abdominal: Reports: Abdominal Pain, Anorexia, Decreased Appetite. Denies: Black Stool, Bloody Stool, Constipation, Diarrhea, Difficulty Swallowing, Distension, Hematemesis, Hematochezia, Nausea, Stool Incontinence, Vomiting : Reports: No Symptoms Musculoskeletal: Reports: No Symptoms (no acute changes from baseline) Skin: Reports: No Symptoms Neurological: Reports: Headache. Denies: Confusion, Dizziness, Numbness, Paresthesia, Seizure, Syncope, Trouble Speaking, Difficulty Walking, Change in Speech Psychiatric: Reports: Anxiety Hematologic/Lymphatic: Reports: No Symptoms ED EXAM, GENERAL - Physical Exam Exam: See Below Exam Limited By: No Limitations General Appearance: Alert, Moderate Distress, Obese Eye Exam: Bilateral Eye: EOMI, PERRL Ears: Normal External Exam Nose: Normal Inspection Throat/Mouth: Normal Inspection, Normal Lips, Normal Oropharynx, Normal Voice, No Airway Compromise Head: Atraumatic, Normocephalic Neck: Normal Inspection, Supple, Non-Tender, Full Range of Motion. No: Lymphadenopathy (L), Lymphadenopathy (R) Respiratory/Chest: No Respiratory Distress, Lungs Clear, Normal Breath Sounds, Chest Non-Tender Cardiovascular: Normal Peripheral Pulses, Regular Rate, Rhythm, No Edema, No Murmur Peripheral Pulses: 2+: Radial (L), Radial (R) GI/Abdominal: Normal Bowel Sounds, Soft, No Distention, No Abnormal Bruit, Tender (tender all 4 quadrants, more so in epigastric area and RUQ). No: Guarding, Rigid, Rebound (Female) Exam: Deferred Rectal (Female) Exam: Deferred Back Exam: Normal Inspection, Full Range of Motion. No: CVA Tenderness (L), CVA Tenderness (R), Muscle Spasm, Paraspinal Tenderness, Vertebral Tenderness Extremities: Normal Inspection, Normal Range of Motion, Non-Tender, Normal Capillary Refill Neurological: Alert, Oriented, Normal Cognition, Normal Gait, No Motor/Sensory Deficits Psychiatric: Anxious Skin Exam: Warm, Dry, Intact, Normal Color EKG INTERPRETATION EKG Date: 08/04/18 Time: 15:33 Rhythm: Other (Sinus tach) Rate (Beats/Min): 107 [place]: Normal P-Wave: Present QRS: Normal ST-T: Other (No acute ST changes suggestive of acute ischemia noted.) QT: Normal Comparison: No Change (no significant changes since last EKG) Course - Vital Signs Last Recorded V/S: Last Vital Signs Temp 37.0 C 08/04/18 14:37 Pulse 85 08/04/18 18:31 Resp 16 08/04/18 18:31 BP 109/71 08/04/18 18:31 Pulse Ox 93 L 08/04/18 18:31 - Orders/Labs/Meds Orders: Active Orders 24 hr Category Date Time Status EKG Documentation Completion [RC] ASDIRECTED Care 08/04/18 15:32 Active Abdomen Pelvis w Cont [CT] Stat Exams 08/04/18 15:36 Taken Saline Lock Insert [OM.PC] Routine Oth 08/04/18 15:31 Ordered Labs: Laboratory Tests 08/04/18 08/04/18 08/04/18 Range/Units 14:49 15:03 15:45 WBC 9.0 (4.0-10.2) K/uL RBC 4.95 (3.77-5.09) M/uL Hgb 15.8 H D (11.7-15.5) g/dL Hct 46.4 H (34.0-46.0) % MCV 93.7 D (84.0-98.0) fL MCH 31.9 (28.2-33.3) pg MCHC 34.1 (31.7-36.0) g/dL RDW 13.0 (11.2-14.1) % Plt Count 325 (150-350) K/uL Neut % (Auto) 66.8 (45.0-80.0) % Lymph % (Auto) 27.6 (10.0-50.0) % [place] % (Auto) 5.0 (2.0-14.0) % Eos % (Auto) 0.3 (0.0-5.0) % Baso % (Auto) 0.3 (0.0-2.0) % Neut # (Auto) 6.02 (1.40-7.00) K/uL Lymph # (Auto) 2.49 (0.50-3.50) K/uL [place] # (Auto) 0.45 (0.00-1.00) K/uL Eos # (Auto) 0.03 (0.00-0.50) K/uL Baso # (Auto) 0.03 (0.00-0.20) K/uL Sodium (136-145) mmol/L Potassium (3.5-5.1) mmol/L Chloride (98-107) mmol/L Carbon Dioxide (21.0-32.0) mmol/L BUN (7-18) mg/dL Creatinine (0.51-1.17) mg/dL Est Cr Clr Drug Dosing mL/min Estimated GFR (MDRD) mL/min Glucose (74-106) mg/dL Calcium (8.5-10.1) mg/dL Magnesium (1.8-2.4) mg/dL Total Bilirubin (0.2-1.0) mg/dL AST (15-37) U/L ALT (12-78) U/L Alkaline Phosphatase (46-116) IU/L Troponin I (0.000-0.056) ng/mL C-Reactive Protein (<=0.9) mg/dL Total Protein (6.4-8.2) g/dL Albumin (3.4-5.0) g/dL Amylase (25-115) U/L Lipase (73-393) U/L TSH, Ultra Sensitive (0.358-3.740) mIU/mL Specimen Type Urinvoid Urine Color Yellow Urine Appearance Cloudy Urine pH 5.5 (5.0-9.0) Ur Specific [place] 1.015 (1.005-1.030) Urine Protein Negative (NEGATIVE) mg/dL Urine Glucose (UA) Negative (NEGATIVE) mg/dL Urine Ketones Negative (NEGATIVE) mg/dL Urine Occult Blood Negative (NEGATIVE) Urine Nitrite Negative (NEGATIVE) Urine Bilirubin Negative (NEGATIVE) Urine Urobilinogen 0.2 (0.2-1.0) E.U./dL Ur Leukocyte Esterase Negative (NEGATIVE) Urine RBC 0-5 /HPF Urine WBC 0-5 /HPF Ur Epithelial Cells Moderate H /LPF Urine Bacteria Moderate H (NONE TO FEW) /HPF Urine Opiates Screen Negative (NEGATIVE) Urine Methadone Screen Negative (NEGATIVE) U Acetaminophen Screen Negative (NEGATIVE) Ur Barbiturates Screen Negative (NEGATIVE) Ur Tricyclics Screen Negative (NEGATIVE) Ur Phencyclidine Scrn Negative (NEGATIVE) Ur Amphetamine Screen Negative (NEGATIVE) U Methamphetamines Scrn Negative (NEGATIVE) U Benzodiazepines Scrn Negative (NEGATIVE) U Cocaine Metab Screen Negative (NEGATIVE) U Marijuana (THC) Screen Positive H (NEGATIVE) 08/04/18 Range/Units 15:45 WBC (4.0-10.2) K/uL RBC (3.77-5.09) M/uL Hgb (11.7-15.5) g/dL Hct (34.0-46.0) % MCV (84.0-98.0) fL MCH (28.2-33.3) pg MCHC (31.7-36.0) g/dL RDW (11.2-14.1) % Plt Count (150-350) K/uL Neut % (Auto) (45.0-80.0) % Lymph % (Auto) (10.0-50.0) % [place] % (Auto) (2.0-14.0) % Eos % (Auto) (0.0-5.0) % Baso % (Auto) (0.0-2.0) % Neut # (Auto) (1.40-7.00) K/uL Lymph # (Auto) (0.50-3.50) K/uL [place] # (Auto) (0.00-1.00) K/uL Eos # (Auto) (0.00-0.50) K/uL Baso # (Auto) (0.00-0.20) K/uL Sodium 137 (136-145) mmol/L Potassium 4.5 (3.5-5.1) mmol/L Chloride 101 (98-107) mmol/L Carbon Dioxide 23.9 (21.0-32.0) mmol/L BUN 9 (7-18) mg/dL Creatinine 0.67 (0.51-1.17) mg/dL Est Cr Clr Drug Dosing 109.63 mL/min Estimated GFR (MDRD) > 60 mL/min Glucose 97 (74-106) mg/dL Calcium 9.8 (8.5-10.1) mg/dL Magnesium 2.1 (1.8-2.4) mg/dL Total Bilirubin 0.2 (0.2-1.0) mg/dL AST 17 (15-37) U/L ALT 45 (12-78) U/L Alkaline Phosphatase 159 H (46-116) IU/L Troponin I 0.000 (0.000-0.056) ng/mL C-Reactive Protein 0.1 (<=0.9) mg/dL Total Protein 7.9 (6.4-8.2) g/dL Albumin 4.2 (3.4-5.0) g/dL Amylase 22 L (25-115) U/L Lipase 56 L (73-393) U/L TSH, Ultra Sensitive 2.276 (0.358-3.740) mIU/mL Specimen Type Urine Color Urine Appearance Urine pH (5.0-9.0) Ur Specific [place] (1.005-1.030) Urine Protein (NEGATIVE) mg/dL Urine Glucose (UA) (NEGATIVE) mg/dL Urine Ketones (NEGATIVE) mg/dL Urine Occult Blood (NEGATIVE) Urine Nitrite (NEGATIVE) Urine Bilirubin (NEGATIVE) Urine Urobilinogen (0.2-1.0) E.U./dL Ur Leukocyte Esterase (NEGATIVE) Urine RBC /HPF Urine WBC /HPF Ur Epithelial Cells /LPF Urine Bacteria (NONE TO FEW) /HPF Urine Opiates Screen (NEGATIVE) Urine Methadone Screen (NEGATIVE) U Acetaminophen Screen (NEGATIVE) Ur Barbiturates Screen (NEGATIVE) Ur Tricyclics Screen (NEGATIVE) Ur Phencyclidine Scrn (NEGATIVE) Ur Amphetamine Screen (NEGATIVE) U Methamphetamines Scrn (NEGATIVE) U Benzodiazepines Scrn (NEGATIVE) U Cocaine Metab Screen (NEGATIVE) U Marijuana (THC) Screen (NEGATIVE) Meds: Medications Discontinued Medications Generic Name Dose Route Start Last Admin Trade Name Freq PRN Reason Stop Dose Admin Al Hydroxide/Mg Hydroxide 30 ml 08/04/18 15:35 08/04/18 15:50 Gi Cocktail PO 08/04/18 15:36 30 ml ONETIME ONE Administration Diazepam 5 mg 08/04/18 15:35 08/04/18 15:51 Valium. PO 08/04/18 15:36 5 mg ONETIME ONE Administration Fentanyl 100 mcg 08/04/18 16:36 08/04/18 16:52 Sublimaze IVPUSH 08/04/18 16:37 100 mcg ONETIME ONE Administration Fentanyl 100 mcg 08/04/18 17:33 08/04/18 17:46 Sublimaze IVPUSH 08/04/18 17:34 100 mcg ONETIME ONE Administration Sodium Chloride 1,000 mls @ 500 mls/hr 08/04/18 15:34 08/04/18 15:54 Normal Saline IV 08/04/18 17:33 500 mls/hr .BOLUS ONE Administration Iopamidol 100 ml 08/04/18 16:27 Isovue-300 (61%) IVPUSH 08/04/18 16:28 ONETIME ONE Ketorolac Tromethamine 30 mg 08/04/18 15:34 08/04/18 15:52 Toradol IVPUSH 08/04/18 15:35 30 mg ONETIME ONE Administration Ondansetron HCl 4 mg 08/04/18 15:34 08/04/18 15:52 Zofran IVPUSH 08/04/18 15:35 4 mg ONETIME ONE Administration Sodium Chloride 10 ml 08/04/18 15:31 08/04/18 15:47 Saline Flush FLUSH 10 ml ASDIRECTED PRN Administration Keep Vein Open - Re-Assessments/Exams Free Text/Narrative Re-Assessment/Exam: 08/04/18 19:23 Labs unremarkable. EKG showed sinus tachycardia, Troponin negative. Patient had no improvement with pain with Toradol. IV fluids given as well as GI cocktail/ Protonix IV. No change in pain with any of these interventions. Abdominal pain had spasm-like quality. Valium PO given. Single dose of Fentanyl improved pain from 10 down to a 6. Second dose given with additional improvement of pain. CT of abdomen/pelvis obtained. As of 19:26 no report from Radiology received. Patient stated that she "had to go" to take care of her children. At this point she appeared much improved. Did have ride home arranged per self report. Uncertain as to specific cause of pain. Differential includes viral/infectious etiology or functional issue. Cannot rule out other GI cause however. If symptoms persist patient would likely benefit from GI consult. May have anxiety component. Patient wishes for us to call her with CT results and says that she will follow up at the ER if things worsen over the weekend. Numerous precautions reviewed with her during visit and prior to discharge. She had no further questions. Tachycardia and elevated BP improved and in normal range at time of discharge. O2 sats fluctuated between 93 (when resting) and 100% on room air. 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 No complaint of SOB/respiratory changes. Free Text/Narrative Re-Assessment/Exam: 08/05/18 07:06 CT results were never called by Radiology. Printed report eventually found in Radiology office. No acute changes noted in study. Study also mentions that patient has had 4 previous CTs since early summer. This was not mentioned by patient during history review. Radiology recommends avoiding any additional CTs if possible in the near future. Departure - Departure Time of Disposition: 19:21 Disposition: Home, Self-Care 01 Condition: Good Clinical Impression: Abdominal pain - Discharge Information *PRESCRIPTION DRUG MONITORING PROGRAM REVIEWED*: Yes *COPY OF PRESCRIPTION DRUG MONITORING REPORT IN PATIENT OLIVIA: Yes Instructions: Pain Without a Known Cause Referrals: Tamara Ray PA-C [Primary Care Provider] - Forms: ED Department Discharge Additional Instructions: Recommend clear liquids/broths only for next 24 hours. Advance diet as tolerated if symptoms improve. Follow up in ER if they return over the weekend. Highly recommend elimination diet as discussed in ER. Follow up with your clinic next week if symptoms have not completely resolved. Avoid dairy/wheat/gluten/corn/soy for the next two weeks. - My Orders Last 24 Hours: My Active Orders 08/04/18 15:31 Saline Lock Insert [OM.PC] Routine 08/04/18 15:32 EKG Documentation Completion [RC] ASDIRECTED 08/04/18 15:36 Abdomen Pelvis w Cont [CT] Stat - Assessment/Plan Last 24 Hours: My Active Orders 08/04/18 15:31 Saline Lock Insert [OM.PC] Routine 08/04/18 15:32 EKG Documentation Completion [RC] ASDIRECTED 08/04/18 15:36 Abdomen Pelvis w Cont [CT] Stat
[2018-08-04 18:31] VITALS: BP 109/71
== END 2018-08-04 19:38 | disposition home or self-care (01) ==
LOC: LL.ED 14:37
DX: R10.9 Unspecified abdominal pain (principal); F17.210 Nicotine dependence, cigarettes, uncomplicated; F41.9 Anxiety disorder, unspecified; F32.9 Major depressive disorder, single episode, unspecified; K21.9 Gastro-esophageal reflux disease without esophagitis; Z79.899 Other long term (current) drug therapy; Z88.8 Allergy status to other drugs, medicaments and biological substances
CPT/HCPCS: 36415; 74177; 80053; 80305-QW; 81001; 82150; 83690; 83735; 84443; 84484; 85025; 86140; 93005; 96361; 96374; 96375; 99285; A9270-GY; J1885; J2405; J3010; J7030; J7050